=== PATIENT | male | born 1970 | race American Indian/Alaskan Native ===

== ENCOUNTER 2018-07-06 11:07 | Emergency (ER) | payer MEDICAID ==
[2018-07-06 11:12] VITALS: BP 144/83; PULSE 82; RESP 18; TEMP 98.4; O2SAT 98
--- NOTE | 2018-07-06 12:43 | C.PDOC ---
History Of Present Illness Patient left before being seen. No patient contact was made, hence no care was received. Chart to be signed solely for administrative purposes. Time Seen by Provider: 07/06/18 12:43 Chief Complaint (Nursing): Substance Abuse Past Medical History Vital Signs: Last Vital Signs Temp 98.4 F 07/06/18 11:09 Pulse 82 07/06/18 11:09 Resp 18 07/06/18 11:09 BP 144/83 07/06/18 11:09 Pulse Ox 98 07/06/18 11:09 Primary Care Provider: Umesh Cifuentes - Medical History PMH: HTN, Schizophrenia Family History: States: Unknown Family Hx - Social History Hx Alcohol Use: No Hx Substance Use: Yes ED Course And Treatment O2 Sat by Pulse Oximetry: 98 Disposition - Disposition Disposition: ELOPEMENT - ER ONLY Disposition Time: 13:00 Condition: UNKNOWN Forms: [facility] (Azerbaijani) - Clinical Impression Clinical Impression: Substance abuse - Scribe Statement The provider has reviewed the documentation as recorded by the Scribe (Josie Bianchi) All medical record entries made by the Scribe were at my direction and personally dictated by me. I have reviewed the chart and agree that the record accurately reflects my personal performance of the history, physical exam, me dical decision making, and the department course for this patient. I have also personally directed, reviewed, and agree with the discharge instructions and disposition.
== END 2018-07-06 13:00 | disposition left against medical advice (07) ==
LOC: C.ER 11:07
DX: Z02.89 Encounter for other administrative examinations (principal); F19.10 Other psychoactive substance abuse, uncomplicated

== ENCOUNTER 2018-07-10 20:15 | Emergency (ER) | payer MEDICAID ==
[2018-07-10 20:28] VITALS: BP 160/89; PULSE 88; RESP 20; TEMP 98.4; O2SAT 95
--- NOTE | 2018-07-10 21:27 | C.PDOC ---
History Of Present Illness 47-year-old male presents to the ED requesting alcohol detox. Patient states his last drink was [employer]. He denies suicidal/homicidal ideation. Time Seen by Provider: 07/10/18 20:30 Chief Complaint (Nursing): Substance Abuse History Per: Patient History/Exam Limitations: no limitations Onset/Duration Of Symptoms: Hrs Current Symptoms Are (Timing): Still Present Modifying Factor(s): Alcohol Associated Symptoms: denies: Suicidal Thoughts, Suicidal Plan Involuntary Hold By: None Recent travel outside of the [place]: No Additional History Per: Patient Past Medical History Reviewed: Historical Data, Nursing Documentation, Vital Signs Vital Signs: Last Vital Signs Temp 98.4 F 07/10/18 20:18 Pulse 88 07/10/18 20:18 Resp 20 07/10/18 20:18 BP 160/89 H 07/10/18 20:18 Pulse Ox 95 07/10/18 20:18 Primary Care Provider: Umesh Cifuentes - Medical History PMH: HTN, Schizophrenia Surgical History: No Surg Hx Family History: States: Unknown Family Hx - Social History Hx Alcohol Use: No Hx Substance Use: Yes Review Of Systems Psych: Positive for: Other (requesting alcohol detox). Negative for: Suicidal ideation Physical Exam - Physical Exam Appears: Non-toxic, No Acute Distress Skin: Normal Color, Warm, Dry Head: Atraumatic, Normacephalic Oral Mucosa: Moist Neck: Supple Chest: Symmetrical Respiratory: No Accessory Muscle Use Extremity: Normal ROM Neurological/Psych: Normal Speech, Normal Cognition ED Course And Treatment O2 Sat by Pulse Oximetry: 95 (on RA) Progress Note: Patient was seen by drafting layout worker Bernie who informed patient that there is no Detox beds. Patient was d/c home in stable condition. Disposition - Disposition Disposition: HOME/ ROUTINE Disposition Time: 21:27 Condition: STABLE Instructions: Alcohol Abuse and Alcoholism (DC) Forms: [facility] (Azeri) - Clinical Impression Clinical Impression: Substance abuse - PA / RECEIVING TELLER / Resident Statement MD/DO has reviewed & agrees with the documentation as recorded. - Scribe Statement The provider has reviewed the documentation as recorded by the Scribe (Claudia Zarate) All medical record entries made by the Scribe were at my direction and personally dictated by me. I have reviewed the chart and agree that the record accurately reflects my personal performance of the history, physical exam, medical decision making, and the department course for this patient. I have also personally directed, reviewed, and agree with the discharge instructions and disposition.
== END 2018-07-10 21:41 | disposition home or self-care (01) ==
LOC: C.ER 20:15
DX: F10.10 Alcohol abuse, uncomplicated (principal); Y90.9 Presence of alcohol in blood, level not specified

== ENCOUNTER 2018-07-10 22:14 | Emergency (ER) | payer MEDICAID | END 2018-07-10 22:23 | disposition left against medical advice (07) | LOC: C.ER 22:14 | DX: Z02.89 Encounter for other administrative examinations (principal) ==